=== PATIENT | female | born 1990 | race African-American/Black ===

== ENCOUNTER 2019-11-10 13:51 | Emergency (ER) | payer OTHER, SELFPAY ==
[2019-11-10 14:03] VITALS: BP 126/65; PULSE 125; RESP 18; TEMP 37; O2SAT 98
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
--- NOTE | 2019-11-10 15:00 | ED.GENADULT ---
HPI - General Adult General Chief complaint: Wound/Laceration Stated complaint: WOUNDS Source: patient Mode of arrival: ambulatory Limitations: no limitations History of Present Illness HPI narrative: Patient is a 28-year-old female who presents to emergency department per EMS from home patient notes concern for possible bugs on her skin patient also does admit to methamphetamine use which she smokes last smoked today patient on arrival to emergency department is denying any recent illness suicidal or homicidal ideation patient with history of schizophrenia and is followed by her rn call center who she has been following with and has been compliant with medication. Patient on arrival in no distress resting comfortably in the room Related Data Allergies Allergy/AdvReac Type Severity Reaction Status Date / Time No Known Allergies Allergy Verified 11/10/19 14:14 Review of Systems Review of Systems: All systems reviewed & are unremarkable except as noted in HPI and below PMFSH Past Medical History Medical History (Updated 11/10/19 @ 15:45 by Keanu Mccain PA-C) Schizophrenia Social History Social History (Updated 11/10/19 @ 15:01 by Keanu Mccain PA-C) Smoking status: Current every day smoker Substance use type: amphetamines Gender identity (if verbalized by the patient): Female Exam Narrative: Exam Narrative: GENERAL: Well-appearing, well-nourished, and in no acute distress. HEAD: Normocephalic, atraumatic. Some healing wounds of the forehead consistent with skin picking EYES: PERRLA and EOMI. ENT: Nares clear, no rhinorrhea or epistaxis. Mucous membranes moist. Oropharynx without tonsillar hypertrophy exudate or other lesions. CHEST: Clear to auscultation. No respiratory distress. No wheezes rales or rhonchi HEART: Regular rate and rhythm. No murmur heard. EXTREMITIES: Normal range of motion. No edema. SKIN: Warm, dry, no rash. NEURO: No focal deficits. Alert and oriented x3. PSYCH: Normal mood and affect. Course Course Emergency Course: Patient in the room in no distress had lengthy conversation about methamphetamine and polysubstance abuse patient agreeing to follow-up with her case provider to seek help patient has longstanding history of substance abuse patient displays understanding and is otherwise resting comfortably in the room in no distress Vital Signs Vital signs: Vital Signs Temperature 98.6 F 11/10/19 14:03 Pulse Rate 125 H 11/10/19 14:03 Respiratory Rate 18 11/10/19 14:03 Blood Pressure 126/65 11/10/19 14:03 Pulse Oximetry 98 11/10/19 14:03 Temperature 98.6 F 11/10/19 14:03 Pulse Rate 125 H 11/10/19 14:03 Respiratory Rate 18 11/10/19 14:03 Blood Pressure 126/65 11/10/19 14:03 Pulse Oximetry 98 11/10/19 14:03 Medical Decision Making MDM Narrative Medical decision making narrative: Patient in the room in no distress at this time displaying understanding of her condition agreeing to follow-up with her residential case manager felt appropriate for discharge home patient provided with reasons to return will also be treated for urinary tract infection Vital Signs Vital Signs: Vital Signs Temperature 98.6 F 11/10/19 14:03 Pulse Rate 125 H 11/10/19 14:03 Respiratory Rate 18 11/10/19 14:03 Blood Pressure 126/65 11/10/19 14:03 Pulse Oximetry 98 11/10/19 14:03 Temperature 98.6 F 11/10/19 14:03 Pulse Rate 125 H 11/10/19 14:03 Respiratory Rate 18 11/10/19 14:03 Blood Pressure 126/65 11/10/19 14:03 Pulse Oximetry 98 11/10/19 14:03 Lab Data Result diagrams: 11/10/19 14:53 11/10/19 14:53 Labs: Lab Results 11/10/19 11/10/19 11/10/19 Range/Units 14:47 14:48 14:53 WBC 5.7 (4.5-10.0) K/mm3 RBC 4.28 (4.2-5.4) M/mm3 Hgb 12.0 (12.0-15.0) g/dL Hct 36.0 L (37.0-47.0) % MCV 84.1 (80-100) fl MCH 28.0 (26-34) pg MCHC 33.3 (32-36) g/dl RDW 13.4 (11.5-14.5) % Plt
[2019-11-10 15:02] LABS: Basophils Percent Auto 0.7 % (0.2-1.2); Eosinophils Absolute Auto 0.1 K/mm3 (0-0.3); Eosinophils Percent Auto 1.8 % (0-4.4); Lymphocytes Absolute Auto 1.88 K/mm3 (0.9-3.2); Lymphocytes Percent Auto 33.2 % (18.3-44.2); Mean Corpuscular HGB Conc 33.3 g/dl (32-36); Mean Corpuscular Volume 84.1 fl (80-100); Mean Platelet Volume 11.5 fl (7.4-10.4); Monocytes Absolute Auto 0.3 K/mm3 (0.1-0.6); Monocytes Percent Auto 5.6 % (2.6-8.5); Neutrophils Absolute Auto 3.3 K/mm3 (1.3-6.7); Neutrophils Percent Auto 58.7 % (45.5-73.1); Platelet Count Result 293 k/mm3 (150-375); Red Blood Count 4.28 M/mm3 (4.2-5.4); Red Cell Distribution Width 13.4 % (11.5-14.5); White Blood Count 5.7 K/mm3 (4.5-10.0)
[2019-11-10 15:07] LABS: Add Urine Microscopic? YES; Appearance Urine Clear (Clear); Bacteria Urine Trace /hpf; Bilirubin Urine Negative (Negative); Blood Urine Negative (Negative); Color Urine Yellow (Yellow); Glucose Urine UA Negative (Negative); Ketones Urine Negative (Negative); Leukocyte Esterase Ur 1+ LEU/UL (Negative); Mucus Urine Heavy /lpf; Nitrate Urine Negative (Negative); Protein Urine 1+ mg/dL (Negative); Specific Grav Ur 1.023 (1.001-1.035); Squamous Epithelial Cell Urine Few /hpf (Few)
[2019-11-10 15:14] LABS: Ethanol < 10 mg/dL (<10)
[2019-11-10 15:15] LABS: Alanine Aminotransferase 10 U/L (4-35); Albumin Level 4.5 g/dL (3.5-5.1); Alkaline Phosphatase 86 U/L (38-126); Anion Gap 9 mmol/L (8-16); Aspartate Amino Transferase 19 U/L (14-36); Bilirubin,Total 0.4 mg/dL (0.2-1.3); Blood Urea Nitrogen 8 mg/dL (7-17); Calcium 9.6 mg/dL (8.4-10.2); Carbon Dioxide 27 mmol/L (22-30); Chloride 101 mmol/L (98-107); Estimated CRCL calculation 93 ml/min; Estimated Glomerular Filt Rate > 60; Glucose 107 mg/dL (65-105); Potassium 3.8 mmol/L (3.4-5.0); Sodium 137 mmol/L (137-145)
[2019-11-10 15:25] LABS: Barbiturate Screen Urine Negative (Negative); Benzodiazepines Screen Urine Negative (Negative)
[2019-11-10 15:45] LABS: Cannabinoid Screen Urine Positive (Negative); Cocaine Screen Urine Negative (Negative); Methadone Screen Urine Negative (Negative); Opiate Screen Urine Negative (Negative); Phencyclidine Screen Urine Negative (Negative)
[2019-11-10 15:57] LABS: Thyroid Stimulating Hormone 0.848 uIU/mL (0.465-4.680)
[2019-11-10 16:08] LABS: Amphetamine Screen Urine Positive (Negative)
== END 2019-11-10 16:09 | disposition home or self-care (01) ==
PROVIDERS: Emergency Medicine Emergency Medical Services; Emergency Provider Emergency Medicine
DX: F19.10 Other psychoactive substance abuse, uncomplicated (principal); N39.0 Urinary tract infection, site not specified; F20.9 Schizophrenia, unspecified; F17.200 Nicotine dependence, unspecified, uncomplicated
CPT/HCPCS: 36415; 80053; 80307; 81001; 81025; 84443; 85025; 87077; 87086; 87088; 99283

== ENCOUNTER 2019-11-17 16:59 | Emergency (ER) | payer OTHER, SELFPAY ==
--- NOTE | ~2019-11-17 | CT_ITS ---
EXAMINATION: CT brain wo con EXAM DATE: 11/17/2019 17:22 INDICATION: Seizure. TECHNIQUE: Spiral CT of the head was performed without contrast. Axial, coronal and sagittal images were reviewed. The dose-length product (DLP) for this examination was 605.33 mGy-cm. The exposure w as tailored according to patient size, and iterative reconstruction (ASIR) was used as additional dos e reduction technique. There is no prior study for comparison. FINDINGS: There is no acute intraparenchymal hemorrhage. No evidence of intraparenchymal brain mass lesion. No evidence of acute infarction. There is no mass effect or midline shift. The ventricles are normal in size. There are no extra-axial collections. There are no acute calvarial fractures. T he orbits are unremarkable. Soft tissue is unremarkable. The visualized sinuses and mastoid air nate ls are well aerated. IMPRESSION: 1. Unremarkable head CT examination. Reviewed, dictated and finalized at location A.
[2019-11-17 16:58] VITALS: BP 98/80; PULSE 92; RESP 20; TEMP 36.7; O2SAT 97
[2019-11-17 17:03] VITALS: O2SAT 100
--- NOTE | 2019-11-17 17:03 | ECG_ITS ---
Measurements Intervals [place] Rate: 100 P: 58 IA: 136 QRS: 27 QRSD: 86 T: 31 QT: 352 QTc: 455 Interpretive Statements SINUS TACHYCARDIA POSSIBLE LEFT ATRIAL ENLARGEMENT LOW QRS VOLTAGE IN PRECORDIAL LEADS BASELINE ARTIFACT- I, III, AVL, AVF, V2 BORDERLINE ECG Electronically Signed On 11-17-2019 17:19:10 CDT by Yusuf Martínez D.O.
--- NOTE | 2019-11-17 17:03 | ED.GENADULT ---
HPI - General Adult General Chief complaint: Seizure Stated complaint: SEIZURE Source: patient and EMS Mode of arrival: EMS Limitations: no limitations History of Present Illness HPI narrative: Patient is a 28-year-old female with a history of schizophrenia, possible seizure disorder who presents for evaluation of episode of lightheadedness. Patient states that she was smoking marijuana with a friend, and 20 minutes after using felt very tired. Per friend, patient lost consciousness, but patient denies this. Patient is able to recount all events, states that she did not lose consciousness, no shaking activity. She is denying any current vision changes, chest pain or shortness of breath. She states that besides marijuana she has recently used methamphetamines. She is compliant with her medications for schizophrenia. Patient states she is not on any antiepileptic medications. She has not followed with any neurologist. Related Data Home Medications Medication Instructions Recorded Confirmed Unable to Obtain Home Medications 11/17/19 11/17/19 Allergies Allergy/AdvReac Type Severity Reaction Status Date / Time No Known Allergies Allergy Verified 11/17/19 17:04 Review of Systems Review of Systems: Narrative: CONSTITUTIONAL: Denies fever, chills, or sweats. EYES: Denies current visual changes ENT: Denies rhinorrhea, congestion, sore throat, or otalgia. CARDIOVASCULAR: Denies chest pain, palpitations, or edema. RESPIRATORY: Denies cough or dyspnea. GASTROINTESTINAL: Denies abdominal pain, nausea, vomiting, or diarrhea. GENITOURINARY: Denies dysuria or hematuria. SKIN: Denies rash or itching. MUSCULOSKELETAL: Denies back pain, joint pain, or myalgia. NEUROLOGIC: Denies headache, numbness, or weakness. [facility] Past Medical History Medical History (Updated 11/17/19 @ 18:20 by Sanjuanita Allen MD) Schizophrenia Substance abuse Social History Social History (Updated 11/17/19 @ 17:30 by Sanjuanita Allen MD) Smoking status: Current every day smoker Alcohol intake: never Substance use: current Substance use type: marijuana and amphetamines Gender identity (if verbalized by the patient): Female Exam Narrative: Exam Narrative: GENERAL: Awake, alert, conversant HEAD: Normocephalic, atraumatic. EYES: PERRLA and EOMI. ENT: Nares clear, no rhinorrhea or epistaxis. Mucous membranes dry NECK: Supple. CHEST: No respiratory distress, breathing even and non labored HEART: Regular rate, sinus rhythm ABDOMEN:Non distended, non tender EXTREMITIES: Normal range of motion. No edema. SKIN: Warm, dry, no rash. NEURO:No focal deficits. Alert and oriented x3 Course Vital Signs Vital signs: Vital Signs Temperature 36.7 C 11/17/19 16:58 Pulse Rate 92 11/17/19 16:58 Respiratory Rate 20 11/17/19 16:58 Blood Pressure 98/80 L 11/17/19 16:58 Pulse Oximetry 97 11/17/19 16:58 Temperature 36.7 C 11/17/19 16:58 Pulse Rate 92 11/17/19 16:58 Respiratory Rate 20 11/17/19 16:58 Blood Pressure 98/80 L 11/17/19 16:58 Pulse Oximetry 100 11/17/19 17:05 Medical Decision Making MDM Narrative Medical decision making narrative: Patient presented for evaluation of possible seizure-like activity after smoking some marijuana with a friend. Patient denies any seizure activity. She states she felt lightheaded and had no loss of consciousness. Patient is not postictal, no tongue laceration, no urinary incontinence. No focal neurological deficits at the time of assessment. CT head obtained and is negative for acute intracranial pathology. Electrolytes normal. No severe leukocytosis or anemia. Patient is not hypoglycemic. Her EKG shows no sign of arrhythmia or ischemia. No anginal type symptoms. No symptoms to suggest PE at this point, patient is PERC criteria negative, making PE unlikely, furthermore patient is denying any syncopal event. Patient states she was lightheaded after using marijuana, a
[2019-11-17 17:05] VITALS: O2SAT 100
[2019-11-17 17:20] LABS: Glucose Point of Care 89 (65-105)
[2019-11-17 17:45] LABS: Basophils Percent Auto 0.6 % (0.2-1.2); Eosinophils Absolute Auto 0.1 K/mm3 (0-0.3); Hematocrit 36.5 % (37.0-47.0); Hemoglobin 12.2 g/dL (12.0-15.0); Immature Granulocyte Absolute 0.01 K/mm3 (0.00-0.031); Immature Granulocyte Percent A 0.2 % (0-0.5); Lymphocytes Absolute Auto 1.88 K/mm3 (0.9-3.2); Lymphocytes Percent Auto 29.6 % (18.3-44.2); Mean Corpuscular HGB Conc 33.4 g/dl (32-36); Mean Corpuscular Hemoglobin 28.2 pg (26-34); Mean Corpuscular Volume 84.3 fl (80-100); Mean Platelet Volume 11.8 fl (7.4-10.4); Monocytes Absolute Auto 0.4 K/mm3 (0.1-0.6); Monocytes Percent Auto 6.3 % (2.6-8.5); Neutrophils Absolute Auto 3.9 K/mm3 (1.3-6.7); Neutrophils Percent Auto 61.3 % (45.5-73.1); Platelet Count Result 277 k/mm3 (150-375); Red Blood Count 4.33 M/mm3 (4.2-5.4); Red Cell Distribution Width 13.2 % (11.5-14.5); White Blood Count 6.4 K/mm3 (4.5-10.0)
[2019-11-17] MEDS: SODIUM CHLORIDE 0.9% IV 1,000 ML 999 ML IV CONT (17:45)
[2019-11-17 17:51] LABS: Add Urine Microscopic? YES; Appearance Urine Cloudy (Clear); Bilirubin Urine Negative (Negative); Blood Urine Negative (Negative); Color Urine Yellow (Yellow); Glucose Urine UA Negative (Negative); Ketones Urine Trace mg/dL (Negative); Leukocyte Esterase Ur Trace LEU/UL (Negative); Mucus Urine Moderate /lpf; Nitrate Urine Negative (Negative); Protein Urine 1+ mg/dL (Negative); RBC Urine 0-2 /hpf (0-2); Specific Grav Ur 1.026 (1.001-1.035); Squamous Epithelial Cell Urine Few /hpf (Few); Urobilinogen Urine Negative mg/dL (<2.0); WBC Urine 0-3 /hpf
[2019-11-17 17:58] LABS: Anion Gap 8 mmol/L (8-16); Blood Urea Nitrogen 14 mg/dL (7-17); Calcium 9.7 mg/dL (8.4-10.2); Carbon Dioxide 26 mmol/L (22-30); Chloride 103 mmol/L (98-107); Estimated CRCL calculation 82 ml/min; Estimated Glomerular Filt Rate > 60; Glucose 87 mg/dL (65-105); Sodium 137 mmol/L (137-145)
[2019-11-17 18:05] LABS: Barbiturate Screen Urine Negative (Negative); Benzodiazepines Screen Urine Negative (Negative)
[2019-11-17 18:08] LABS: Cannabinoid Screen Urine Positive (Negative); Cocaine Screen Urine Negative (Negative); Methadone Screen Urine Negative (Negative); Opiate Screen Urine Negative (Negative); Phencyclidine Screen Urine Negative (Negative)
[2019-11-17 18:32] VITALS: BP 138/90; PULSE 86; RESP 18; O2SAT 98
[2019-11-17 18:33] LABS: Amphetamine Screen Urine Positive (Negative)
== END 2019-11-17 18:43 | disposition home or self-care (01) ==
PROVIDERS: Emergency Provider Emergency Medicine
DX: R42 Dizziness and giddiness (principal); F12.10 Cannabis abuse, uncomplicated; F20.9 Schizophrenia, unspecified; F17.200 Nicotine dependence, unspecified, uncomplicated; R00.0 Tachycardia, unspecified; R94.31 Abnormal electrocardiogram [ECG] [EKG]
CPT/HCPCS: 36415; 70450; 80048; 80307; 81001; 81025; 82948; 85025; 93005; 96360; 99284; J7030

== ENCOUNTER 2019-11-25 20:01 | Emergency (ER) | payer OTHER, SELFPAY ==
[2019-11-25 20:05] VITALS: BP 111/71; PULSE 100; RESP 18; TEMP 36.4; O2SAT 100
--- NOTE | 2019-11-25 23:12 | ED.GENADULT ---
HPI - General Adult General Chief complaint: Unspecified Stated complaint: medication refill Source: patient Mode of arrival: ambulatory History of Present Illness HPI narrative: 28 f missed a dose of her homicide suicide medication, which is invega, after her case management associate was changed unclear where this took place not currently homicidal or suicidal but would like something to calm until she calls [facility] in the AM or Thursday she is currently correctly taking trazodone and sertraline Related Data Home Medications Medication Instructions Recorded Confirmed sertraline 25 mg PO DAILY 11/25/19 trazodone 11/25/19 Allergies Allergy/AdvReac Type Severity Reaction Status Date / Time No Known Allergies Allergy Verified 11/25/19 20:10 Review of Systems Constitutional: Constitutional: Denies fever(s) Respiratory: Respiratory: Denies cough and Denies dyspnea Gastrointestinal: Gastrointestinal: Denies diarrhea and Denies vomiting Neurologic: Denies dizziness and Denies focal weakness Psychiatric: Psychiatric: Reports anxiety, Denies homicidal ideation and Denies suicidal ideation Comments: no hallucinations PMFSH Past Medical History Medical History (Updated 11/25/19 @ 23:17 by Crispin Abel MD) Schizophrenia Substance abuse Social History Social History (Updated 11/17/19 @ 17:30 by Sanjuanita Allen MD) Smoking status: Current every day smoker Alcohol intake: never Substance use: current Substance use type: marijuana and amphetamines Gender identity (if verbalized by the patient): Female Exam Const: General: alert Orientation/consciousness: patient oriented x3 HENMT: Mouth: Yes moist mucous membranes Eyes: Conjunctivae: conjunctivae normal EOM: EOMs intact bilaterally Resp: Effort & Inspection: normal respiratory effort Skin: General skin exam: normal color Neuro: General: patient oriented x3, moves all extremities and no focal motor deficits Psych: Affect: Anxious affect present Attitude: cooperative Thought content: No Suicidality present, No Homicidality present and No Hallucination(s) present Course Vital Signs Vital signs: Vital Signs Temperature 36.4 C L 11/25/19 20:05 Pulse Rate 100 11/25/19 20:05 Respiratory Rate 18 11/25/19 20:05 Blood Pressure 111/71 11/25/19 20:05 Pulse Oximetry 100 11/25/19 20:05 Temperature 36.4 C L 11/25/19 20:05 Pulse Rate 100 11/25/19 20:05 Respiratory Rate 18 11/25/19 20:05 Blood Pressure 111/71 11/25/19 20:05 Pulse Oximetry 100 11/25/19 20:05 Medical Decision Making Vital Signs Vital Signs: Vital Signs Temperature 36.4 C L 11/25/19 20:05 Pulse Rate 100 11/25/19 20:05 Respiratory Rate 18 11/25/19 20:05 Blood Pressure 111/71 11/25/19 20:05 Pulse Oximetry 100 11/25/19 20:05 Temperature 36.4 C L 11/25/19 20:05 Pulse Rate 100 11/25/19 20:05 Respiratory Rate 18 11/25/19 20:05 Blood Pressure 111/71 11/25/19 20:05 Pulse Oximetry 100 11/25/19 20:05 Discharge Plan Discharge Clinical Impression: Anxiety Patient Disposition: Home, Self-Care Condition: Stable Instructions: Antibiotic Form Prescriptions: No Action sertraline 25 mg Tablet 25 mg PO DAILY RF: 0 trazodone RF: 0 Follow-up/Referrals: PHYSICIAN,[facility]ER [Primary Care Provider] - Gary Mendoza MD [Physician] - (as needed for primary care ) [facility] [Outside] (as needed)
[2019-11-25] MEDS: OLANZapine DISPERTAB 5 MG 10 MG PO (23:44)
[2019-11-25 23:47] VITALS: BP 103/63; PULSE 96; RESP 18; TEMP 36.4; O2SAT 97
[2019-11-26 00:10] VITALS: BP 103/63; PULSE 96; RESP 18; TEMP 36.4; O2SAT 97
== END 2019-11-26 00:10 | disposition home or self-care (01) ==
LOC: ANHED 11-26 00:19
PROVIDERS: Emergency Provider Emergency Medicine
DX: F41.9 Anxiety disorder, unspecified (principal); F17.200 Nicotine dependence, unspecified, uncomplicated
CPT/HCPCS: 99283; A9270